=== PATIENT | male | born 1965 | race American Indian/Alaskan Native ===

== ENCOUNTER 2018-05-27 06:20 | Emergency (ER) | payer SELFPAY ==
[2018-05-27] MEDS ORDERED: Dextrose 50% SYRINGE Inj (50 ml) ONE ×2 (06:29→06:32)
[2018-05-27] MEDS ORDERED: Dextrose 50% SYRINGE Inj (50 ml) IV STA ×2 (06:36→06:37)
[2018-05-27 06:41] VITALS: RESP 16; O2SAT 100
--- NOTE | 2018-05-27 06:42 | C.PDOC ---
History Of Present Illness 52 year old male with PMHx of DM is brought to the ED by EMS for evaluation. Patient was found by in the bad diaphoretic and shaking which prompted the visit to the ED. Patient initially was confused, drooling. Patient was given small amount of oral glucose by EMS with no change. Patient's reports patient drinks beer. Time Seen by Provider: 05/27/18 06:32 Chief Complaint (Nursing): Medical Clearance History Per: Patient, EMS, Family History/Exam Limitations: clinical condition Onset/Duration Of Symptoms: Hrs Current Symptoms Are (Timing): Still Present Recent travel outside of the [place]: No Additional History Per: Patient, EMS, Family Past Medical History Reviewed: Historical Data, Nursing Documentation, Vital Signs Vital Signs: Last Vital Signs Temp 97.4 F L 05/27/18 06:25 Pulse 77 05/27/18 06:25 Resp 16 05/27/18 06:25 BP 136/80 05/27/18 06:25 Pulse Ox 100 05/27/18 07:10 - Medical History PMH: Diabetes Surgical History: No Surg Hx Family History: States: Unknown Family Hx - Social History Hx Alcohol Use: Yes Hx Substance Use: No - Immunization History Hx Tetanus Toxoid Vaccination: No Hx Influenza Vaccination: No Hx Pneumococcal Vaccination: No Review Of Systems Constitutional: Negative for: Fever, Chills Cardiovascular: Negative for: Chest Pain, Palpitations Respiratory: Negative for: Cough, Shortness of Breath Gastrointestinal: Negative for: Nausea, Vomiting Skin: Negative for: Rash Neurological: Positive for: Confusion. Negative for: Weakness, Numbness Physical Exam - Physical Exam Appears: Non-toxic, Confused Skin: Normal Color, Other (drooling. skin cool) Head: Atraumatic, Normacephalic Eye(s): bilateral: Normal Inspection Oral Mucosa: Moist Neck: Normal ROM, Supple Chest: Symmetrical Cardiovascular: Rhythm Regular Respiratory: Normal Breath Sounds, No Rales, No Rhonchi, No Wheezing Gastrointestinal/Abdominal: Soft, No Tenderness, No Guarding, No Rebound Extremity: Normal ROM, No Tenderness, No Swelling Neurological/Psych: No Oriented x3, Other (confused) Gait: Unable To Assess ED Course And Treatment - Laboratory Results Result Diagrams: 05/27/18 06:54 O2 Sat by Pulse Oximetry: 100 (ON RA) Pulse Ox Interpretation: Normal Medical Decision Making Medical Decision Making: Impression: diabetic found altered by Plan: * Labs * UA * Dextrose 50 ml IV Patient was given 1 amp of D-50 in the ED after which started feeling much better. Disposition - Disposition Referrals: Non [facility] Provider, [Primary Care Provider] - Disposition Time: 07:11 Condition: STABLE Forms: [facility] (Dominican) - Clinical Impression Clinical Impression: Hypoglycemia - PA / SHIFT STACKER / Resident Statement MD/DO has reviewed & agrees with the documentation as recorded. - Scribe Statement The provider has reviewed the documentation as recorded by the Scribe Shorty Maria All medical record entries made by the Scribe were at my direction and personally dictated by me. I have reviewed the chart and agree that the record accurately reflects my personal performance of the history, physical exam, medical decision making, and the department course for this patient. I have also personally directed, reviewed, and agree with the discharge instructions and disposition. Physician Patient Turnover Patient Signed Over To: Rachel Wilson Handoff Comments: f/u labs. re-eval pt for dispo
[2018-05-27 06:58] LABS: BASO % 0.6 % (0.0-2.0); EOS % 1.1 % (0.0-4.0); HEMOGLOBIN 14.3 g/dL (12.0-18.0); LYMPH # 0.8 K/uL (1.0-4.3); LYMPH % 24.2 % (20.0-40.0); MEAN CELL VOLUME 89.5 fL (80.0-94.0); MEAN CORPUSCULAR HEMOGLOBIN 31.3 pg (27.0-31.0); MEAN CORPUSCULAR HGB CONC 34.9 g/dL (33.0-37.0); MONO # 0.5 K/uL (0.0-0.8); MONO % 13.5 % (0.0-10.0); NEUT # 2.1 K/uL (1.8-7.0); NEUT % 60.6 % (50.0-75.0); RBC 4.57 Mil/uL (4.40-5.90); RED CELL DISTRIBUTION WIDTH 13.1 % (11.5-14.5); WHITE BLOOD COUNT 3.5 K/uL (4.8-10.8)
[2018-05-27] MEDS ORDERED: Sodium Chloride 0.9% 1,000 ML IV ONE (07:22)
[2018-05-27 07:50] LABS: ALB/GLOB RATIO 1.4 (1.0-2.1); ALBUMIN 3.9 g/dL (3.5-5.0); ALT/SGPT 36 U/L (21-72); AST/SGOT 43 U/L (17-59); BLOOD UREA NITROGEN 11 mg/dL (9-20); CALCIUM 9.3 mg/dl (8.6-10.4); GFR AFRICAN-AMERICAN > 60; GFR NON-AFRICAN AMERICAN > 60
[2018-05-27] MEDS ORDERED: Sodium Chloride 0.9% 1,000 ML ONE (07:55)
[2018-05-27 08:31] LABS: SQUAMOUS EPITHIAL 1 /hpf (0-5); URINE BILIRUBIN NEGATIVE (NEGATIVE); URINE BLOOD NEGATIVE (NEGATIVE); URINE CLARITY Clear (Clear); URINE COLOR Straw (YELLOW); URINE GLUCOSE (UA) 2+ mg/dL (Normal); URINE LEUKOCYTE ESTERASE NEG Leu/uL (Negative); URINE PROTEIN NEGATIVE (NEGATIVE); URINE UROBILINOGEN NORMAL mg/dL (0.2-1.0)
[2018-05-27 08:44] LABS: BARBITURATES, UR NEGATIVE (NEGATIVE); BENZODIAZEPINES, UR NEGATIVE (NEGATIVE); OPIATES, UR NEGATIVE (NEGATIVE); PHENCYCLIDINE, UR NEGATIVE (NEGATIVE)
[2018-05-27 09:29] VITALS: BP 136/78; PULSE 70; TEMP 97.6
--- NOTE | 2018-05-27 10:10 | RAD ---
Date of service: 05/27/2018 HISTORY: weak COMPARISON: No prior. FINDINGS: LUNGS: No active pulmonary disease. PLEURA: No significant pleural effusion identified, no pneumothorax apparent. CARDIOVASCULAR: Normal. OSSEOUS STRUCTURES: No significant abnormalities. VISUALIZED UPPER ABDOMEN: Normal. OTHER FINDINGS: None. IMPRESSION: No active disease.
--- NOTE | 2018-05-28 17:52 | CARD ---
APPROVED REPORT Date of service: 05/27/2018 EKG Measurement Heart [id number] DC [id number] [id number] <Conclusion> Sinus bradycardia Otherwise normal ECG
== END 2018-05-27 09:20 | disposition home or self-care (01) ==
LOC: SUPCPDRO 06:20 → C.ER 06:20
DX: E11.649 Type 2 diabetes mellitus with hypoglycemia without coma (principal); Z79.4 Long term (current) use of insulin
CPT/HCPCS: 71045; 80053; 81001; 82948; 84484; 85025; 93005; 96361; 96374; 99284; G0480; J7030